=== PATIENT | female | born 2005 ===

== ENCOUNTER 2023-08-04 10:52 | Outpatient (CLI) | payer OTHER | END 2023-08-04 10:53 | disposition home or self-care (01) | LOC: PRENATAL 10:52 | PROVIDERS: ATTEND Obstetrics & Gynecology Maternal & Fetal Medicine | DX: O35.9XX0 Maternal care for (suspected) fetal abnormality and damage, unspecified, not applicable or unspecified (principal); O44.00 Complete placenta previa NOS or without hemorrhage, unspecified trimester; O35.3XX0 Maternal care for (suspected) damage to fetus from viral disease in mother, not applicable or unspecified; Z3A.19 19 weeks gestation of pregnancy ==

== ENCOUNTER → 2023-09-11 09:34 | Outpatient (CLI) | payer OTHER | END | disposition home or self-care (01) | LOC: PRENATAL 09:34 | PROVIDERS: ATTEND Obstetrics & Gynecology Maternal & Fetal Medicine | DX: O26.849 Uterine size-date discrepancy, unspecified trimester (principal); O36.8199 Decreased fetal movements, unspecified trimester, other fetus; Z3A.34 34 weeks gestation of pregnancy ==

== ENCOUNTER 2023-10-05 18:47 | Inpatient (IN) | payer OTHER ==
[~2023-10-05] VITALS: Ht 165.1 cm; Wt 2.7 kg
[2023-10-05] MEDS ORDERED: PRENATAL TABLE1 EAC1 PO (18:51)
[2023-10-05 19:57] LABS: HEMATOCRIT 37.1 % (36.0-45.00); HEMOGLOBIN 12.2 g/dL (12.0-15.00); MEAN CELL VOLUME 76.8 fL (80.00-100.00); MEAN CORPUSCULAR HEMOGLOBIN 25.3 pg (27.00-32.0); PLATELET COUNT 305 K/uL (150-450); RED BLOOD COUNT 4.83 M/uL (4.00-6.00); RED CELL DISTRIBUTION WIDTH 14.2 % (11.5-14.5)
[2023-10-05 19:58] LABS: PH,URINE 6.5 (5.0-8.0); URINE APPEARANCE Clear; URINE BILIRRUBIN Small (NEGATIVE); URINE BLOOD Negative; URINE COLOR Dark Yellow; URINE GLUCOSE Negative (NEGATIVE); URINE LEUKOCYTE Trace; URINE NITRATE Negative; URINE PROTEIN Trace (NEGATIVE)
[2023-10-05 20:01] LABS: URINE BACTERIA 2294.4 uL (0.0-1933); URINE EPITHELIAL CELLS 45.9 uL (0.0-38.8); URINE RBC 27.8 uL (0.0-20.8); URINE WBC 31.3 uL (0.0-23.2)
[2023-10-05 20:15] LABS: INR 0.94; PARTIAL THROMBOPLASTIN TIME 25.5 SECONDS (22.0-34.0); PROTHROMBIN TIME 9.9 SECONDS (9.0-11.5)
[2023-10-05 20:20] LABS: ALBUMIN 2.7 gm/dL (3.4-5.0); BILIRUBIN TOTAL 0.24 mg/dL (0.3-1.2); CREATININE SERUM 0.44 mg/dL (0.55-1.02); GFR 182.3; GLOBULINA 3.8 G/DL (2.4-3.5); POTASSIUM 3.65 mEq/L (3.5-5.1); TOTAL PROTEIN 6.5 gm/dL (6.4-8.2)
[2023-10-05 21:08] LABS: URINE CRYSTALS FEW /HPF
[2023-10-06 19:37] LABS: URINE PROT QUANT 24HR 20.3 MG/DL
[2023-10-08 21:32] LABS: ABG PH 7.321 (7.35-7.45); ABG PO2 26.7 mmHg (80-100); ABG pCO2 37.5 mmHg (35-45); BASE EXCESS -6.4 mmol/l; Tco2 20.1 mmol/l; o2 21 %
[2023-10-09 09:58] LABS: HEMATOCRIT 38.3 % (36.0-45.00); HEMOGLOBIN 12.8 g/dL (12.0-15.00); MEAN CELL VOLUME 75.7 fL (80.00-100.00); MEAN CORPUSCULAR HEMOGLOBIN 25.3 pg (27.00-32.0); MEAN CORPUSCULAR HGB CONC 33.4 g/dl (32.0-36.0); PLATELET COUNT 284 K/uL (150-450); RED BLOOD COUNT 5.06 M/uL (4.00-6.00); RED CELL DISTRIBUTION WIDTH 13.8 % (11.5-14.5)
[2023-10-11] MEDS ORDERED: Tylenol #3 PO (05:51)
[2023-10-11] MEDS ORDERED: NAPR500T14 PO (05:51)
== END 2023-10-11 13:57 | disposition home or self-care (01) | DRG 788 ==
LOC: LDR 18:47 → OB/GYN 18:47 → LDR 10-07 16:07 → O/R 10-08 20:13 → OB/GYN 10-08 22:59
PROVIDERS: Student in an Organized Health Care Education/Training Program; ADMIT Obstetrics & Gynecology; ATTEND Obstetrics & Gynecology
PROC: 4A1HXCZ Monitoring of Products of Conception, Cardiac Rate, External Approach (ICD-10-PCS; 2023-10-05)
PROC: 3E033VJ Introduction of Other Hormone into Peripheral Vein, Percutaneous Approach (ICD-10-PCS; 2023-10-07)
PROC: 3E0P7VZ Introduction of Hormone into Female Reproductive, Via Natural or Artificial Opening (ICD-10-PCS; 2023-10-07)
PROC: 10D00Z1 Extraction of Products of Conception, Low, Open Approach (ICD-10-PCS; principal; 2023-10-08 18:00)
DX: O61.0 Failed medical induction of labor (principal); O13.4 Gestational [pregnancy-induced] hypertension without significant proteinuria, complicating childbirth; Z3A.37 37 weeks gestation of pregnancy; Z37.0 Single live birth; Z20.822 Contact with and (suspected) exposure to COVID-19